=== PATIENT | female | born 2000 | race Caucasian/White ===

== ENCOUNTER 2025-04-12 23:47 | Emergency (ER) | payer OTHER ==
[~2025-04-12] VITALS: Ht 160 cm; Wt 68.5 kg
[2025-04-13] VITALS: BP 119/68
[2025-04-13] MEDS ORDERED: HYDR-3972 PO (00:55)
[2025-04-13] MEDS ORDERED: AMOX-430 PO (00:59)
[2025-04-13] MEDS ORDERED: NEOM10DR11 RIGHT EAR (00:59)
[2025-04-13] MEDS ORDERED: AMOXICILLIN-CLAVUL 875-125MG TABLET ONE (01:02)
[2025-04-13] MEDS ORDERED: HYDROCODONE/APAP 5-325MG TABLET ONE (01:03)
[2025-04-13] MEDS: AMOXICILLIN-CLAVUL 875-125MG TABLET PO ONE (01:05)
[2025-04-13] MEDS: HYDROCODONE/APAP 5-325MG TABLET PO ONE (01:05)
[2025-04-13 01:10] VITALS: BP 115/73; O2SAT 97
== END 2025-04-13 01:10 | disposition home or self-care (01) ==
LOC: ER 23:56
DX: H66.93 Otitis media, unspecified, bilateral (principal); F17.290 Nicotine dependence, other tobacco product, uncomplicated; J45.909 Unspecified asthma, uncomplicated
CPT/HCPCS: A4606; A4663